=== PATIENT | male | born 1935 | race Caucasian/White ===

== ENCOUNTER 2017-05-04 07:00 | Day surgery (SDC) | payer MEDICARE, OTHER ==
[~2017-05-04] VITALS: Ht 922 cm; Wt 132.2 kg
[~2017-05-04 07:00] MED LIST: ALLO100; DOXA4 PO; FINA5 PO; OMEP20ER PO; OXYC5; SIMV10 PO; VALS80
[2017-05-04] MEDS ORDERED: Mobic7.5 MG PO (07:50)
== END 2017-05-04 09:02 | disposition home or self-care (01) ==
LOC: ORSCSDS 07:00
PROVIDERS: Ophthalmology
PROC: 08RK3JZ Replacement of Left Lens with Synthetic Substitute, Percutaneous Approach (ICD-10-PCS; principal; 2017-05-04 08:30)
DX: H25.12 Age-related nuclear cataract, left eye (principal); I10 Essential (primary) hypertension; G47.33 Obstructive sleep apnea (adult) (pediatric); K21.9 Gastro-esophageal reflux disease without esophagitis; E66.01 Morbid (severe) obesity due to excess calories; Z68.39 Body mass index [BMI] 39.0-39.9, adult; Z79.899 Other long term (current) drug therapy
CPT/HCPCS: J2250; J3010; J3301; V2632

== ENCOUNTER 2017-07-20 06:12 | Day surgery (SDC) | payer MEDICARE, OTHER ==
[~2017-07-20] VITALS: Ht 182.9 cm; Wt 132.4 kg
[~2017-07-20 06:12] MED LIST changes: +Mobic7.5 MG PO
== END 2017-07-20 08:01 | disposition home or self-care (01) ==
LOC: ORSCSDS 06:12
PROVIDERS: Ophthalmology
PROC: 08RJ3JZ Replacement of Right Lens with Synthetic Substitute, Percutaneous Approach (ICD-10-PCS; principal; 2017-07-20 07:30)
DX: H25.11 Age-related nuclear cataract, right eye (principal); I10 Essential (primary) hypertension; Z79.899 Other long term (current) drug therapy; E66.9 Obesity, unspecified; Z68.39 Body mass index [BMI] 39.0-39.9, adult; Z87.891 Personal history of nicotine dependence
CPT/HCPCS: J2250; J3010; J3301; V2632

== ENCOUNTER 2019-05-28 01:17 | Inpatient (IN) | payer MEDICARE, OTHER ==
[~2019-05-28] VITALS: Ht 175.3 cm; Wt 136.2 kg
[2019-05-28] MEDS ORDERED: POTA10T PO (01:30)
[2019-05-28] MEDS ORDERED: FURO40 PO (01:30)
[2019-05-28 01:42] LABS: BASOPHILS ABSOLUTE AUTO 0.06 K/mm3 (0.00-0.23); BASOPHILS PERCENT AUTO 1 % (0-2); EOSINOPHILS ABSOLUTE AUTO 0.33 K/mm3 (0.00-0.68); EOSINOPHILS PERCENT AUTO 3 % (0-6); Hematocrit 44.6 % (37.0-53.0); Hemoglobin 14.6 g/dL (13.5-17.5); IMMATURE GRAN ABSOLUTE AUTO 0.04 K/mm3 (0.00-0.10); IMMATURE GRAN PERCENT AUTO 0 % (0-1); LYMPHOCYTES ABSOLUTE AUTO 1.34 K/mm3 (0.84-5.20); LYMPHOCYTES PERCENT AUTO 12 % (21-46); MONOCYTES ABSOLUTE AUTO 0.92 K/mm3 (0.16-1.47); MONOCYTES PERCENT AUTO 8 % (4-13); Mean Corpuscular HGB Conc 32.7 g/dL (31.5-36.5); Mean Corpuscular Volume 95 fL (80-100); Mean Platelet Volume 10.9 fL (9.1-12.4); NEUTROPHILS ABSOLUTE AUTO 8.31 K/mm3 (1.96-9.15); NEUTROPHILS PERCENT AUTO 76 % (41-73); Platelet Count 167 K/mm3 (150-400); RDW Coefficient Variation 13.7 % (11.7-14.2); RDW Standard Deviation 47.8 fL (35.1-46.3); Red Blood Cell Count 4.71 M/mm3 (4.30-5.90)
[2019-05-28 02:03] LABS: Alanine Aminotransfer (ALT/SGP 25 U/L (12-78); Albumin, Blood 3.4 g/dL (3.4-5.0); Albumin/Globulin Ratio 0.8 (0.8-1.8); Alk Phos 86 U/L (50-136); Anion Gap 5 mmol/L (6-16); Aspartate Aminotrans (AST/SGOT 25 U/L (12-37); Bilirubin, Total 0.7 mg/dL (0.1-1.0); Blood Urea Nitrogen 24 mg/dL (8-24); Bun/Creatinine Ratio 20.7 (12.0-20.0); CO2, Blood 30 mmol/L (21-32); Calcium, Blood 9.4 mg/dL (8.5-10.1); Chloride, Blood 104 mmol/L (98-108); Creatinine, Blood 1.16 mg/dL (0.60-1.20); Globulin, Blood 4.4 g/dL (2.2-4.0); Glomerular Filtration Rate >60 (60-); Glucose, Blood 109 mg/dL (70-99); Potassium, Blood 3.7 mmol/L (3.5-5.5); Sodium, Blood 139 mmol/L (136-145); Total Protein, Blood 7.8 g/dL (6.4-8.2); Troponin I 0.837 ng/mL (0.000-0.040)
[2019-05-28 03:24] LABS: Creatine Kinase MB 11.8 ng/mL (0.0-3.6); Creatine Kinase MB Index 7.6 (0.0-4.0); International Normalized Ratio 1.02; Prothrombin Time Results 10.9 Sec (9.7-11.5)
[2019-05-28 10:44] LABS: BASOPHILS ABSOLUTE AUTO 0.07 K/mm3 (0.00-0.23); BASOPHILS PERCENT AUTO 1 % (0-2); EOSINOPHILS ABSOLUTE AUTO 0.42 K/mm3 (0.00-0.68); EOSINOPHILS PERCENT AUTO 5 % (0-6); Hemoglobin 13.2 g/dL (13.5-17.5); IMMATURE GRAN ABSOLUTE AUTO 0.04 K/mm3 (0.00-0.10); IMMATURE GRAN PERCENT AUTO 1 % (0-1); LYMPHOCYTES ABSOLUTE AUTO 1.69 K/mm3 (0.84-5.20); LYMPHOCYTES PERCENT AUTO 20 % (21-46); MONOCYTES ABSOLUTE AUTO 0.86 K/mm3 (0.16-1.47); MONOCYTES PERCENT AUTO 10 % (4-13); Mean Corpuscular HGB 30.6 pg (26.0-34.0); Mean Corpuscular HGB Conc 32.2 g/dL (31.5-36.5); Mean Corpuscular Volume 95 fL (80-100); Mean Platelet Volume 10.9 fL (9.1-12.4); NEUTROPHILS ABSOLUTE AUTO 5.22 K/mm3 (1.96-9.15); NEUTROPHILS PERCENT AUTO 63 % (41-73); Platelet Count 149 K/mm3 (150-400); RDW Coefficient Variation 13.6 % (11.7-14.2); RDW Standard Deviation 48.3 fL (35.1-46.3); Red Blood Cell Count 4.31 M/mm3 (4.30-5.90)
[2019-05-28 11:13] LABS: CHOL/HDL RATIO 2.3; Cholesterol 129 mg/dL (50-200); HDL Cholesterol 56 mg/dL (>39); LDL/HDL RATIO 1.1; Low Density Lipoprotein Chol 60 mg/dL (0-110); Triglycerides 66 mg/dL (30-160); Very Low Density Lipoprot Chol 13 mg/dL (6-32)
[2019-05-28 11:23] LABS: Alanine Aminotransfer (ALT/SGP 22 U/L (12-78); Albumin, Blood 2.9 g/dL (3.4-5.0); Albumin/Globulin Ratio 0.8 (0.8-1.8); Alk Phos 72 U/L (50-136); Anion Gap 6 mmol/L (6-16); Aspartate Aminotrans (AST/SGOT 51 U/L (12-37); Bilirubin, Total 0.9 mg/dL (0.1-1.0); Blood Urea Nitrogen 21 mg/dL (8-24); Bun/Creatinine Ratio 20.4 (12.0-20.0); CO2, Blood 29 mmol/L (21-32); Calcium, Blood 8.9 mg/dL (8.5-10.1); Chloride, Blood 104 mmol/L (98-108); Creatinine, Blood 1.03 mg/dL (0.60-1.20); Globulin, Blood 3.8 g/dL (2.2-4.0); Glomerular Filtration Rate >60 (60-); Glucose, Blood 116 mg/dL (70-99); Potassium, Blood 3.8 mmol/L (3.5-5.5); Sodium, Blood 139 mmol/L (136-145); Total Protein, Blood 6.7 g/dL (6.4-8.2)
--- NOTE | 2019-05-28 11:31 | NUR ---
3CC AIR TAKEN OUT OT TR BAND, NO BLEEDING NOTED. SITE REMAINS PAIN FREE.
--- NOTE | 2019-05-28 11:58 | NUR ---
REMAINING AIR RELEASED FROM TR BAND, NO BLEEDING NOTED.
--- NOTE | 2019-05-28 15:45 | NUR ---
ASSUMED PATIENT CARE. PATIENT RESTING COMFORTABLY IN BED SPEAKING WITH NURSING STAFF. PATIENT DENIES CHEST PAIN, SOB, AND CHEST TIGHTNESS. EQUAL BILATERAL CHEST RISE WITH BREATH. WRIST WOUND ASSESSED AND NO DRAINAGE NOTED. NO SIGNS OF ACUTE DISTRESS. WCTM.
--- NOTE | 2019-05-28 19:10 | NUR ---
PATIENT ARRIVED FROM ED VIA [facility]. ANGIOGRAM THROUGH R. WRIST PERFORMED, NO BLOCKAGES FOUND AND NO STENTS PLACED. WRIST SITE IS NONTENDER, NO DRAINAGE NOTED. ECHO DONE TODAY AFTER ARRIVAL TO PCU TO CHECK FOR [place] CARDIOMYOPATHY. IF FOUND TO BE NEGATIVE CT ANGIOGRAM WILL BE DONE. PLAN IS TO NOW R/O PE. PATIENT DENIED CALF PAIN OR TIGHTNESS. TROP TRENDING IN DESIRED DIRECTION.
--- NOTE | 2019-05-29 05:38 | NUR ---
05/29/19 0530 PT AWAKE THIS AM AND STATES HE ALWAYS HAS DIFFICULTY SLEEPING AT NIGHT. DENIES ANY S/S OR DISCOMFORT THIS SHIFT. UP TO BATHROOM FOR VOIDING. ANGIOGRAM SITE TO RT. ARM REMAINS DRY AND INTACT. VITALS AND HEART MONITOR REMAIN STABLE.
--- NOTE | 2019-05-29 17:34 | NUR ---
SHIFT SUMMARY PT ALERT AND ORIENTED. VS STABLE. O2 SATS REMAIN ABOVE 90% ON RA. HR NSR. PT DENIES ANY CHEST PAIN. PT AWAITING TRANSPORT FOR COBRA TO [facility] FOR TAVR. FAMILY AT BEDSIDE. TRANSPORT TO BE HERE WITHIN 10 MINUTES. REPORT CALLED TO KAMARI DOYLE AT [facility].
== END 2019-05-29 17:47 | disposition short-term general hospital (02) | DRG 281 ==
LOC: ER 01:17 → ERHOLD 03:19 → PCU 13:40
PROVIDERS: Emergency Medicine; ADMIT Internal Medicine
PROC: 4A023N7 Measurement of Cardiac Sampling and Pressure, Left Heart, Percutaneous Approach (ICD-10-PCS; principal; 2019-05-28)
PROC: B2111ZZ Fluoroscopy of Multiple Coronary Arteries using Low Osmolar Contrast (ICD-10-PCS; 2019-05-28)
DX: I21.4 Non-ST elevation (NSTEMI) myocardial infarction (principal); Z68.41 Body mass index [BMI] 40.0-44.9, adult; I25.10 Atherosclerotic heart disease of native coronary artery without angina pectoris; I35.0 Nonrheumatic aortic (valve) stenosis; I10 Essential (primary) hypertension; E78.5 Hyperlipidemia, unspecified; G47.33 Obstructive sleep apnea (adult) (pediatric); N40.0 Benign prostatic hyperplasia without lower urinary tract symptoms; M10.9 Gout, unspecified; M54.9 Dorsalgia, unspecified; G89.29 Other chronic pain; E66.9 Obesity, unspecified; Z88.8 Allergy status to other drugs, medicaments and biological substances; Z87.891 Personal history of nicotine dependence; Z85.828 Personal history of other malignant neoplasm of skin; Z79.899 Other long term (current) drug therapy; Z79.1 Long term (current) use of non-steroidal anti-inflammatories (NSAID); Z79.891 Long term (current) use of opiate analgesic
CPT/HCPCS: 36415; 71046; 71260; 76937; 80053; 80061; 82550; 82553; 83690; 83880; 84484; 85025; 85347; 85610; 85730; 93005; 93010; 93306; 93454; 94762; 96365; 96366; 96375; 99152; 99153; 99285-25; A9270-GY; C1769; C1887; C1894; C9113; J1644; J2250; J3010; J7030; J7040; Q9967

== ENCOUNTER 2020-03-11 01:14 | Emergency (ER) | payer MEDICARE, OTHER ==
[~2020-03-11] VITALS: Ht 185.4 cm; Wt 127.0 kg
[~2020-03-11 01:14] MED LIST changes: +FURO40 PO; +POTA10T PO
== END 2020-03-11 02:14 | disposition home or self-care (01) ==
LOC: ER 01:14
DX: R00.2 Palpitations (principal); I10 Essential (primary) hypertension; E66.9 Obesity, unspecified; Z88.6 Allergy status to analgesic agent; Z68.36 Body mass index [BMI] 36.0-36.9, adult; Z79.899 Other long term (current) drug therapy
CPT/HCPCS: 93005; 93010; 99284-25

== ENCOUNTER → 2020-10-21 | Outpatient (CLI) | payer MEDICARE, OTHER ==
[2020-10-21 13:20] LABS: BASOPHILS ABSOLUTE AUTO 0.08 K/mm3 (0.00-0.23); BASOPHILS PERCENT AUTO 1 % (0-2); EOSINOPHILS ABSOLUTE AUTO 0.36 K/mm3 (0.00-0.68); EOSINOPHILS PERCENT AUTO 4 % (0-6); Hematocrit 44.5 % (37.0-53.0); Hemoglobin 14.7 g/dL (13.5-17.5); IMMATURE GRAN ABSOLUTE AUTO 0.04 K/mm3 (0.00-0.10); IMMATURE GRAN PERCENT AUTO 0 % (0-1); LYMPHOCYTES ABSOLUTE AUTO 2.68 K/mm3 (0.84-5.20); LYMPHOCYTES PERCENT AUTO 26 % (21-46); MONOCYTES ABSOLUTE AUTO 0.91 K/mm3 (0.16-1.47); MONOCYTES PERCENT AUTO 9 % (4-13); Mean Corpuscular HGB 30.9 pg (26.0-34.0); Mean Corpuscular Volume 94 fL (80-100); Mean Platelet Volume 11.3 fL (9.1-12.4); NEUTROPHILS ABSOLUTE AUTO 6.16 K/mm3 (1.96-9.15); NEUTROPHILS PERCENT AUTO 60 % (41-73); Platelet Count 191 K/mm3 (150-400); RDW Standard Deviation 48.2 fL (35.1-46.3); Red Blood Cell Count 4.75 M/mm3 (4.30-5.90); White Blood Cell Count 10.23 K/mm3 (4.00-11.30)
[2020-10-21 15:11] LABS: Alanine Aminotransfer (ALT/SGP 19 U/L (12-78); Albumin, Blood 3.2 g/dL (3.4-5.0); Albumin/Globulin Ratio 0.7 (0.8-1.8); Alk Phos 85 U/L (50-136); Anion Gap 5 mmol/L (6-16); Aspartate Aminotrans (AST/SGOT 14 U/L (12-37); Bilirubin, Total 1.2 mg/dL (0.1-1.0); Blood Urea Nitrogen 23 mg/dL (8-24); Bun/Creatinine Ratio 23.5 (12.0-20.0); CO2, Blood 28 mmol/L (21-32); Chloride, Blood 105 mmol/L (98-108); Cholesterol 134 mg/dL (50-200); Creatinine, Blood 0.98 mg/dL (0.60-1.20); Globulin, Blood 4.5 g/dL (2.2-4.0); Glomerular Filtration Rate >60 (60-); Glucose, Blood 90 mg/dL (70-99); HDL Cholesterol 45 mg/dL (>39); LDL/HDL RATIO 1.6; Low Density Lipoprotein Chol 74 mg/dL (0-110); Sodium, Blood 138 mmol/L (136-145); Total Protein, Blood 7.7 g/dL (6.4-8.2); Triglycerides 77 mg/dL (30-160); Very Low Density Lipoprot Chol 15 mg/dL (6-32)
== END | disposition home or self-care (01) ==
LOC: LAB SHORT 09:20 → LAB 09:20
PROVIDERS: Family Medicine
DX: Z12.5 Encounter for screening for malignant neoplasm of prostate (principal); E78.2 Mixed hyperlipidemia; I10 Essential (primary) hypertension
CPT/HCPCS: 80053; 80061; 85025; G0103

== ENCOUNTER → 2022-06-30 | Outpatient (CLI) | payer MEDICARE, OTHER | END | disposition home or self-care (01) | LOC: LAB SHORT 15:22 → LAB 15:22 | DX: L01.01 Non-bullous impetigo (principal) | CPT/HCPCS: 87070; 87077; 87186; 87205 ==

== ENCOUNTER 2022-09-25 00:12 | Emergency (ER) | payer MEDICARE, OTHER ==
[~2022-09-25] VITALS: Ht 182.9 cm; Wt 131.5 kg
[2022-09-25 00:58] LABS: BASOPHILS ABSOLUTE AUTO 0.07 K/mm3 (0.00-0.23); BASOPHILS PERCENT AUTO 1 % (0-2); EOSINOPHILS ABSOLUTE AUTO 0.27 K/mm3 (0.00-0.68); EOSINOPHILS PERCENT AUTO 3 % (0-6); Hematocrit 37.2 % (37.0-53.0); Hemoglobin 12.4 g/dL (13.5-17.5); IMMATURE GRAN ABSOLUTE AUTO 0.03 K/mm3 (0.00-0.10); IMMATURE GRAN PERCENT AUTO 0 % (0-1); LYMPHOCYTES ABSOLUTE AUTO 1.87 K/mm3 (0.84-5.20); LYMPHOCYTES PERCENT AUTO 17 % (21-46); MONOCYTES ABSOLUTE AUTO 1.28 K/mm3 (0.16-1.47); MONOCYTES PERCENT AUTO 12 % (4-13); Mean Corpuscular HGB 30.7 pg (26.0-34.0); Mean Corpuscular HGB Conc 33.3 g/dL (31.5-36.5); Mean Corpuscular Volume 92 fL (80-100); Mean Platelet Volume 10.8 fL (9.1-12.4); NEUTROPHILS ABSOLUTE AUTO 7.37 K/mm3 (1.96-9.15); NEUTROPHILS PERCENT AUTO 68 % (41-73); Platelet Count 151 K/mm3 (150-400); RDW Coefficient Variation 14.6 % (11.7-14.2); RDW Standard Deviation 49.7 fL (35.1-46.3); Red Blood Cell Count 4.04 M/mm3 (4.30-5.90); White Blood Cell Count 10.89 K/mm3 (4.00-11.30)
[2022-09-25 01:16] LABS: Albumin, Blood 2.9 g/dL (3.4-5.0); Albumin/Globulin Ratio 0.7 (0.8-1.8); Bilirubin, Total 1.5 mg/dL (0.1-1.0); Bun/Creatinine Ratio 28.8 (12.0-20.0); Calcium, Blood 9.3 mg/dL (8.5-10.1); Creatinine, Blood 1.18 mg/dL (0.60-1.20); Globulin, Blood 4.2 g/dL (2.2-4.0); Potassium, Blood 3.6 mmol/L (3.5-5.5); Total Protein, Blood 7.1 g/dL (6.4-8.2)
[2022-09-25 05:30] VITALS: BP 178/84
== END 2022-09-25 05:40 | disposition home or self-care (01) ==
LOC: ER 00:12
PROVIDERS: Emergency Medicine
DX: I11.0 Hypertensive heart disease with heart failure (principal); I50.9 Heart failure, unspecified; I48.91 Unspecified atrial fibrillation; Z79.899 Other long term (current) drug therapy; E78.5 Hyperlipidemia, unspecified; G47.33 Obstructive sleep apnea (adult) (pediatric); M10.9 Gout, unspecified
CPT/HCPCS: 71260; 80053; 83880; 84484; 85025; 93005; 93010; 96374-59; 99284-25; J1940; Q9967

== ENCOUNTER 2022-10-27 21:35 | Emergency (ER) | payer OTHER, MEDICARE ==
[~2022-10-27] VITALS: Ht 182.9 cm; Wt 128.8 kg
[2022-10-27 21:50] VITALS: BP 131/71
== END 2022-10-27 23:24 | disposition home or self-care (01) ==
LOC: ER 21:35
DX: S01.01XA Laceration without foreign body of scalp, initial encounter (principal); Z23 Encounter for immunization; W01.10XA Fall on same level from slipping, tripping and stumbling with subsequent striking against unspecified object, initial encounter; Z79.899 Other long term (current) drug therapy; I10 Essential (primary) hypertension; E78.5 Hyperlipidemia, unspecified; G47.33 Obstructive sleep apnea (adult) (pediatric); M10.9 Gout, unspecified
CPT/HCPCS: 12002; 90471; 90715; 99282-25

== ENCOUNTER → 2025-01-12 | Outpatient (CLI) | payer MEDICARE, OTHER ==
[2025-01-12 13:46] LABS: BASOPHILS ABSOLUTE AUTO 0.07 K/mm3 (0.00-0.23); BASOPHILS PERCENT AUTO 1 % (0-2); EOSINOPHILS ABSOLUTE AUTO 0.36 K/mm3 (0.00-0.68); EOSINOPHILS PERCENT AUTO 3 % (0-6); Hematocrit 38.1 % (37.0-53.0); Hemoglobin 12.2 g/dL (13.5-17.5); IMMATURE GRAN ABSOLUTE AUTO 0.05 K/mm3 (0.00-0.10); IMMATURE GRAN PERCENT AUTO 1 % (0-1); LYMPHOCYTES ABSOLUTE AUTO 2.08 K/mm3 (0.84-5.20); LYMPHOCYTES PERCENT AUTO 20 % (21-46); MONOCYTES ABSOLUTE AUTO 1.15 K/mm3 (0.16-1.47); MONOCYTES PERCENT AUTO 11 % (4-13); Mean Corpuscular HGB Conc 32.0 g/dL (31.5-36.5); Mean Corpuscular Volume 97 fL (80-100); NEUTROPHILS ABSOLUTE AUTO 6.81 K/mm3 (1.96-9.15); NEUTROPHILS PERCENT AUTO 65 % (41-73); NRBC ABSOLUTE 0.00 K/mm3 (0.00-0.02); NRBC Auto 0.0 /100 WBC (0.0-0.2); Platelet Count 154 K/mm3 (150-400); RDW Coefficient Variation 14.0 % (11.7-14.2); RDW Standard Deviation 50.2 fL (35.1-46.3)
[2025-01-12 14:07] LABS: Alanine Aminotransfer (ALT/SGP 15.0 U/L (12-78); Albumin, Blood 2.8 g/dL (3.4-5.0); Albumin/Globulin Ratio 0.7 (0.8-1.8); Anion Gap 7.0 mmol/L (3-11); Aspartate Aminotrans (AST/SGOT 16.0 U/L (12-37); Bilirubin, Total 1.4 mg/dL (0.1-1.0); Blood Urea Nitrogen 28.0 mg/dL (8-24); Calcium, Blood 9.4 mg/dL (8.5-10.1); Chloride, Blood 101.0 mmol/L (98-108); Creatinine, Blood 1.25 mg/dL (0.60-1.20); Globulin, Blood 3.8 g/dL (2.2-4.0); Glucose, Blood 102.0 mg/dL (70-99); Potassium, Blood 4.0 mmol/L (3.5-5.5); Sodium, Blood 136.0 mmol/L (136-145); Thyroid Stimulating Hormone 5.351 uIU/mL (0.360-4.800); Total Protein, Blood 6.6 g/dL (6.4-8.2)
[2025-01-12 14:08] LABS: CO2, Blood 32.0 mmol/L (21-32)
== END ==
LOC: LAB SHORT 13:42 → LAB 13:42
PROVIDERS: Physician Assistant Medical
DX: R60.0 Localized edema (principal); R06.00 Dyspnea, unspecified; R53.83 Other fatigue
CPT/HCPCS: 80053; 83880; 84443; 84484; 85025

== ENCOUNTER → 2025-01-13 | Outpatient (CLI) | payer MEDICARE, OTHER ==
[2025-01-13 13:52] LABS: Anion Gap 9.0 mmol/L (3-11); Blood Urea Nitrogen 27.0 mg/dL (8-24); CO2, Blood 32.0 mmol/L (21-32); Calcium, Blood 9.4 mg/dL (8.5-10.1); Chloride, Blood 103.0 mmol/L (98-108); Creatinine, Blood 1.05 mg/dL (0.60-1.20); Glucose, Blood 114.0 mg/dL (70-99); Potassium, Blood 3.8 mmol/L (3.5-5.5); Sodium, Blood 140.0 mmol/L (136-145)
== END ==
LOC: LAB 13:42 → LAB SHORT 13:42
DX: I50.9 Heart failure, unspecified (principal)
CPT/HCPCS: 80048

== ENCOUNTER 2025-01-28 11:19 | Emergency (ER) | payer MEDICARE, OTHER ==
[~2025-01-28] VITALS: Ht 182.9 cm; Wt 132.4 kg
[2025-01-28 12:38] LABS: BASOPHILS ABSOLUTE AUTO 0.06 K/mm3 (0.00-0.23); BASOPHILS PERCENT AUTO 1 % (0-2); EOSINOPHILS ABSOLUTE AUTO 0.31 K/mm3 (0.00-0.68); EOSINOPHILS PERCENT AUTO 3 % (0-6); Hematocrit 41.1 % (37.0-53.0); Hemoglobin 13.3 g/dL (13.5-17.5); IMMATURE GRAN ABSOLUTE AUTO 0.04 K/mm3 (0.00-0.10); IMMATURE GRAN PERCENT AUTO 0 % (0-1); LYMPHOCYTES ABSOLUTE AUTO 1.92 K/mm3 (0.84-5.20); LYMPHOCYTES PERCENT AUTO 19 % (21-46); MONOCYTES ABSOLUTE AUTO 1.04 K/mm3 (0.16-1.47); MONOCYTES PERCENT AUTO 10 % (4-13); Mean Corpuscular HGB Conc 32.4 g/dL (31.5-36.5); Mean Corpuscular Volume 96 fL (80-100); NEUTROPHILS ABSOLUTE AUTO 6.97 K/mm3 (1.96-9.15); NEUTROPHILS PERCENT AUTO 67 % (41-73); NRBC ABSOLUTE 0.00 K/mm3 (0.00-0.02); NRBC Auto 0.0 /100 WBC (0.0-0.2); Platelet Count 157 K/mm3 (150-400); RDW Coefficient Variation 13.4 % (11.7-14.2); RDW Standard Deviation 47.9 fL (35.1-46.3)
[2025-01-28 13:13] LABS: Alanine Aminotransfer (ALT/SGP 19.0 U/L (12-78); Albumin, Blood 3.0 g/dL (3.4-5.0); Albumin/Globulin Ratio 0.8 (0.8-1.8); Anion Gap 7.0 mmol/L (3-11); Aspartate Aminotrans (AST/SGOT 19.0 U/L (12-37); Bilirubin, Total 1.6 mg/dL (0.1-1.0); Blood Urea Nitrogen 27.0 mg/dL (8-24); CO2, Blood 30.0 mmol/L (21-32); Calcium, Blood 9.8 mg/dL (8.5-10.1); Chloride, Blood 106.0 mmol/L (98-108); Creatinine, Blood 0.96 mg/dL (0.60-1.20); Globulin, Blood 4.0 g/dL (2.2-4.0); Glucose, Blood 117.0 mg/dL (70-99); Potassium, Blood 3.8 mmol/L (3.5-5.5); Sodium, Blood 139.0 mmol/L (136-145); Thyroid Stimulating Hormone 3.79 uIU/mL (0.360-4.800); Total Protein, Blood 7.0 g/dL (6.4-8.2)
[2025-01-28 15:25] LABS: Source, Urine Voided
[2025-01-28 15:49] LABS: Bilirubin, Urine Neg (Neg); Color, Urine Yellow (P-Yellow); Glucose Qualitative, Urine Neg (Neg); Ketones, Urine Neg (Neg); Leukocyte Esterase, Urine 1+ (Neg); Protein, Urine 2+ (Neg); Specific Gravity, Urine 1.020 (1.003-1.022); Urobilinogen, Urine 2+ (Normal)
[2025-01-28 16:03] LABS: Red Blood Cells, Urine 0-2 /hpf (0-2)
[2025-01-28 17:50] VITALS: BP 109/79
== END 2025-01-28 17:52 | disposition home or self-care (01) ==
LOC: ER 11:19
PROVIDERS: Emergency Medicine
DX: R44.3 Hallucinations, unspecified (principal); R47.81 Slurred speech; R25.3 Fasciculation; I10 Essential (primary) hypertension; E78.5 Hyperlipidemia, unspecified; G47.33 Obstructive sleep apnea (adult) (pediatric); M10.9 Gout, unspecified; Z79.899 Other long term (current) drug therapy
CPT/HCPCS: 51798; 70450; 71045; 73502; 80053; 81001; 83880; 84443; 85025; 87086; 93005; 93010; 99284-25; A9270